=== PATIENT | female | born 1950 | race African-American/Black ===

== ENCOUNTER 2020-07-09 13:02 | Inpatient (IN) | payer OTHER ==
[~2020-07-09] VITALS: Ht 165.1 cm; Wt 90.3 kg
[~2020-07-09 13:02] MED LIST: GLIP10TA10 PO; HYDR12.529 PO; LEVO25TA7 PO; LISI40TA13 PO; METF-416 PO; POTA10CA42 PO
[2020-07-09] MEDS ORDERED: SODIUM CHLORIDE 0.9% 1,000 ML IV ONE (13:45)
[2020-07-09 14:55] LABS: CHLORIDE 103 mEq/L (98-107)
[2020-07-09 14:56] LABS: BASOPHILS % 0.6 % (0.0-2.0); HEMATOCRIT. 34.2 % (36.0-48.0); HEMOGLOBIN. 10.8 g/dL (12.0-16.0); LYMPHOCYTES % 9.4 % (20.0-50.0); MEAN CORPUSCULAR HEMOGLOBIN 25.3 pg (28.0-32.0); MEAN CORPUSCULAR VOLUME 80.2 fL (81.0-99.0); MEAN PLATELET VOLUME 7.7 fl (7.4-10.4); MONOCYTES % 7.7 % (2.0-8.0); NEUTROPHILS % 82.3 % (40.0-76.0); PLATELET 577 x1000/uL (130-400); RED BLOOD CELL COUNT 4.26 mill/uL (4.2-5.4); RED CELL DISTRIBUTION WIDTH 17.7 % (11.6-14.6)
[2020-07-09 15:40] LABS: CLARITY URINE CLOUDY (CLEAR); COLOR URINE YELLOW (YELLOW); KETONES URINE 1+ (NEGATIVE); LEUKOCYTE ESTERASE URINE 2+ (NEGATIVE); NITRITE URINE NEGATIVE (NEGATIVE); OCCULT BLOOD URINE TRACE (NEGATIVE); PROTEIN URINE TRACE (NEGATIVE); SPECIFIC GRAVITY URINE 1.011 (1.005-1.030); UROBILINOGEN URINE 0.2 E.U./dL (0.2-1.0)
[2020-07-09 16:01] LABS: *BARBITURATES SCREEN URINE NEGATIVE (NEGATIVE); *BENZODIAZEPINES SCREEN URINE NEGATIVE (NEGATIVE); *COCAINE SCREEN URINE NEGATIVE (NEGATIVE); CANNABINOID URINE SCREEN NEGATIVE (NEGATIVE); METHADONE URINE SCREEN NEGATIVE (NEGATIVE); OPIATES URINE SCREEN NEGATIVE (NEGATIVE); PHENCYCLIDINE URINE SCREEN NEGATIVE (NEGATIVE)
[2020-07-09 16:02] LABS: *AMPHETAMINES SCREEN URINE NEGATIVE (NEGATIVE)
[2020-07-09] MEDS ORDERED: LEVOFLOXACIN 750MG PREMIX 150 ML IV NR (18:00)
[2020-07-09] MEDS ORDERED: MORPHINE SULFATE 4 MG/ML CPJ (NOT FOR IM USE) IV ONE (18:45)
[2020-07-09 22:00] VITALS: BP 155/76
[2020-07-09] MEDS ORDERED: HYDROCODONE/ACETAMINOPHEN 5/325MG TABLET PO PRN ×2 (23:45)
[2020-07-09] MEDS ORDERED: ONDANSETRON HCL 4MG/2ML INJ IV PRN (23:45)
[2020-07-10] VITALS: BP 152/76
[2020-07-10] MEDS ORDERED: DEXTROSE 50% WATER 50ML SYRINGE IV PRN (00:15)
[2020-07-10] MEDS: HYDROCODONE/ACETAMINOPHEN 5/325MG TABLET PO PRN ×3 (00:45→23:05)
[2020-07-10] MEDS: ENOXAPARIN 30MG/0.3ML SYR SUBCUT SCH ×2 (00:47→13:34)
[2020-07-10] MEDS ORDERED: POTASSIUM CHLORIDE 20MEQ TABLET SR PO NR ×2 (01:00→11:00)
[2020-07-10 05:30] VITALS: BP 199/95
[2020-07-10] MEDS: LEVOTHYROXINE SODIUM 25MCG TABLET PO SCH (06:04)
[2020-07-10] MEDS: CLONIDINE 0.1MG TABLET PO PRN (06:06)
[2020-07-10] MEDS: BLOOD SUGAR DIAGNOSTIC STRIP TEST SCH ×4 (06:11→21:36)
[2020-07-10 07:23] LABS: BASOPHILS % 0.5 % (0.0-2.0); EOSINOPHILS % 0.1 % (0.0-5.0); HEMATOCRIT. 31.5 % (36.0-48.0); LYMPHOCYTES % 16.5 % (20.0-50.0); MEAN CORPUSCULAR HEMOGLOBIN 25.3 pg (28.0-32.0); MEAN CORPUSCULAR VOLUME 79.7 fL (81.0-99.0); MEAN PLATELET VOLUME 7.5 fl (7.4-10.4); MONOCYTES % 9.6 % (2.0-8.0); NEUTROPHILS % 73.3 % (40.0-76.0); PLATELET 504 x1000/uL (130-400); RED BLOOD CELL COUNT 3.96 mill/uL (4.2-5.4); RED CELL DISTRIBUTION WIDTH 17.6 % (11.6-14.6)
[2020-07-10 07:36] LABS: CHLORIDE 102 mEq/L (98-107)
[2020-07-10 07:45] LABS: CREATINE KINASE MB FRACTION 2.8 ng/mL (0.5-3.6); LDL CHOLESTEROL 82 mg/dL (5-100)
[2020-07-10 07:46] LABS: CREATINE KINASE 253 IU/L (26-192); HDL CHOLESTEROL 54 mg/dL (40-59)
[2020-07-10 08:49] VITALS: BP 104/56
[2020-07-10] MEDS ORDERED: ASPIRIN 81MG EC TABLET PO SCH (09:00)
[2020-07-10] MEDS: AMLODIPINE 5MG TABLET PO SCH (09:07)
[2020-07-10] MEDS: INSULIN LISPRO 100 UNITS/ML SUBCUT SCH ×4 (09:10→21:00)
[2020-07-10] MEDS ORDERED: LEVOFLOXACIN 500MG TABLET PO SCH (11:00)
[2020-07-10 12:17] VITALS: BP 159/65
[2020-07-10] MEDS ORDERED: IPRATROPIUM/ALBUTEROL 0.5-3(2.5)MG/3ML NEB HHN PRN (14:30)
[2020-07-10] MEDS ORDERED: HYDRALAZINE 20MG/ML VIAL IV PRN (14:30)
[2020-07-10] MEDS ORDERED: SODIUM CHLORIDE 0.45% 1,000 ML IV SCH (14:30)
[2020-07-10] MEDS ORDERED: BISACODYL 10MG SUPP PR PRN (14:30)
[2020-07-10] MEDS ORDERED: MORPHINE SULFATE 2 MG/ML CPJ (NOT FOR IM USE) IV PRN (14:30)
[2020-07-10] MEDS ORDERED: VANCOMYCIN 1,750 MG in DEXT 5% WATER 250 ML IV NR (16:00)
[2020-07-10 16:10] LABS: INR 1.1; PROTHROMBIN TIME 12.2 sec (9.6-11.0)
[2020-07-10 16:16] LABS: CREATINE KINASE MB FRACTION 2.7 ng/mL (0.5-3.6)
[2020-07-10 16:17] VITALS: BP 128/60
[2020-07-10] MEDS: DEXAMETHASONE 4MG/ML 1ML VIAL IV SCH (18:00)
[2020-07-10] MEDS: SODIUM CHLORIDE 0.9% 1,000 ML IV SCH (21:15)
[2020-07-11] VITALS (49 sets, daily range): BP systolic 1–239; BP diastolic 0–234
[2020-07-11] MEDS: DEXAMETHASONE 4MG/ML 1ML VIAL IV SCH ×5 (00:03→23:42)
[2020-07-11 05:40] LABS: HEMATOCRIT. 33.3 % (36.0-48.0); HEMOGLOBIN. 10.5 g/dL (12.0-16.0); MEAN CORPUSCULAR HEMOGLOBIN 24.9 pg (28.0-32.0); MEAN CORPUSCULAR VOLUME 78.9 fL (81.0-99.0); MEAN PLATELET VOLUME 7.7 fl (7.4-10.4); PLATELET 523 x1000/uL (130-400); RED BLOOD CELL COUNT 4.23 mill/uL (4.2-5.4); RED CELL DISTRIBUTION WIDTH 17.6 % (11.6-14.6)
[2020-07-11] MEDS ORDERED: THROMBIN (BOVINE) 5000 UNITS/VIAL TOP ONE (06:05)
[2020-07-11] MEDS ORDERED: BACITRACIN 50,000 UNITS/VIAL ONE (06:05)
[2020-07-11 06:10] LABS: CHLORIDE 104 mEq/L (98-107)
[2020-07-11] MEDS: LEVOTHYROXINE SODIUM 25MCG TABLET PO SCH (06:12)
[2020-07-11] MEDS: BLOOD SUGAR DIAGNOSTIC STRIP TEST SCH ×4 (06:12→20:59)
[2020-07-11] MEDS: INSULIN LISPRO 100 UNITS/ML SUBCUT SCH ×4 (06:17→20:59)
[2020-07-11] MEDS: SODIUM CHLORIDE 0.9% 1,000 ML IV SCH ×2 (06:17→17:23)
[2020-07-11] MEDS ORDERED: NEOSTIGMINE METHYLSULFATE 1MG/ML 10 ML VIAL ONE (07:03)
[2020-07-11] MEDS ORDERED: FENTANYL CITRATE/PF 50MCG/ML 2ML VIAL ONE ×3 (07:03→08:40)
[2020-07-11] MEDS ORDERED: ROCURONIUM BROMIDE 10MG/ML VIAL 5ML IV ONE ×2 (07:03→07:31)
[2020-07-11] MEDS ORDERED: EPHEDRINE SULFATE 50MG/ML VIAL ONE (07:04)
[2020-07-11] MEDS ORDERED: PROPOFOL 200MG/20ML VIAL IV ONE (07:04)
[2020-07-11] MEDS ORDERED: ONDANSETRON HCL 4MG/2ML INJ ONE (07:04)
[2020-07-11] MEDS ORDERED: SUCCINYLCHOLINE CHLORIDE 200MG/10ML IV ONE (07:04)
[2020-07-11] MEDS ORDERED: MIDAZOLAM HCL 2 MG/2 ML VIAL ONE (07:04)
[2020-07-11] MEDS ORDERED: CEFAZOLIN SODIUM 1000MG/VIAL ONE (07:04)
[2020-07-11] MEDS ORDERED: GLYCOPYRROLATE 0.2 MG/ML 2ML VIAL ONE (07:04)
[2020-07-11] MEDS ORDERED: SODIUM CHLORIDE 0.9% 10ML VIAL ONE (07:04)
[2020-07-11] MEDS ORDERED: METOCLOPRAMIDE HCL 10MG/2ML VIAL ONE (07:05)
[2020-07-11] MEDS ORDERED: PHENYLEPHRINE HCL 10 MG/ML 1ML (IV VIAL) IV ONE (07:05)
[2020-07-11] MEDS ORDERED: VANCOMYCIN 1 G PREMIX 200 ML IV SCH (08:00)
[2020-07-11] MEDS ORDERED: MORPHINE SULFATE 4 MG/ML CPJ (NOT FOR IM USE) IV PRN (09:00)
[2020-07-11] MEDS ORDERED: LABETALOL HCL 5MG/ML VIAL 20ML IV ONE (09:00)
[2020-07-11] MEDS: AMLODIPINE 5MG TABLET PO SCH (09:00)
[2020-07-11] MEDS: NICARDIPINE 100 MG in SODIUM CHLORIDE 0.9% 60 ML IV PRN ×2 (09:37→19:15)
[2020-07-11] MEDS: LEVOFLOXACIN 500MG PREMIX 100 ML IV SCH (11:00)
[2020-07-11] MEDS ORDERED: ONDANSETRON INJ IV PRN (11:45)
[2020-07-11] MEDS ORDERED: NALOXONE INJ IV PRN (11:45)
[2020-07-11] MEDS ORDERED: HYDROMORPHONE PCA 10MG/50ML IV PRN (11:45)
[2020-07-11 13:08] LABS: BG CARBOXYHEMOGLOBIN 0.3 % (0.5-1.5); BG DEOXYHEMOGLOBIN 7.2 % (0.0-5.0); BG HCO3 ACT 24.1 mmol/L (22.0-26.0); BG METHEMOGLOBIN 0.3 % (0.0-1.5); BG OXYGEN SATURATION 92.8 % (92.0-98.5); BG OXYHEMOGLOBIN 92.2 % (94.0-97.0); BG PCO2 41.7 mmHg (35.0-45.0); BG PH 7.379 (7.350-7.450); BG PO2 70.4 mmHg (75.0-100.0); BG SAMPLE SITE ALINE; BG TOTAL HEMOGLOBIN 11.1 g/dL (12.0-18.0); BG VENT MODE ROOM AIR
[2020-07-11 14:31] LABS: PLATELET ESTIMATE INCREASED
[2020-07-11] MEDS: VANCOMYCIN 1 G PREMIX 200 ML IV SCH (17:22)
[2020-07-11] MEDS: MAGNESIUM/ALUMINUM HYDROXIDE/SIMETHICONE 30ML UDC PO PRN (20:07)
[2020-07-12] VITALS (112 sets, daily range): BP systolic 69–170; BP diastolic 45–163
[2020-07-12] MEDS: MAGNESIUM/ALUMINUM HYDROXIDE/SIMETHICONE 30ML UDC PO PRN ×3 (00:37→15:48)
[2020-07-12] MEDS: SODIUM CHLORIDE 0.9% 1,000 ML IV SCH ×3 (03:27→23:17)
[2020-07-12 06:00] LABS: HEMATOCRIT. 31.7 % (36.0-48.0); HEMOGLOBIN. 10.1 g/dL (12.0-16.0); MEAN CORPUSCULAR HEMOGLOBIN 25.1 pg (28.0-32.0); MEAN CORPUSCULAR VOLUME 78.9 fL (81.0-99.0); MEAN PLATELET VOLUME 7.9 fl (7.4-10.4); PLATELET 539 x1000/uL (130-400); RED BLOOD CELL COUNT 4.01 mill/uL (4.2-5.4); RED CELL DISTRIBUTION WIDTH 17.6 % (11.6-14.6)
[2020-07-12] MEDS: BLOOD SUGAR DIAGNOSTIC STRIP TEST SCH ×4 (06:07→21:12)
[2020-07-12] MEDS: LEVOTHYROXINE SODIUM 25MCG TABLET PO SCH (06:07)
[2020-07-12] MEDS: DEXAMETHASONE 4MG/ML 1ML VIAL IV SCH ×4 (06:07→23:17)
[2020-07-12] MEDS: INSULIN LISPRO 100 UNITS/ML SUBCUT SCH ×4 (06:10→21:21)
[2020-07-12 06:22] LABS: CHLORIDE 105 mEq/L (98-107)
[2020-07-12] MEDS: AMLODIPINE 5MG TABLET PO SCH ×2 (09:00→15:48)
[2020-07-12 10:20] LABS: PLATELET ESTIMATE INCREASED
[2020-07-12] MEDS: VANCOMYCIN 1 G PREMIX 200 ML IV SCH (10:30)
[2020-07-12] MEDS: LEVOFLOXACIN 500MG PREMIX 100 ML IV SCH (11:43)
[2020-07-12] MEDS: DIPHENHYDRAMINE INJ IV PRN (17:14)
[2020-07-12] MEDS: CARVEDILOL 3.125 MG TABLET PO SCH (21:12)
[2020-07-12] MEDS: HYDRALAZINE HCL 50MG TABLET PO SCH (21:12)
[2020-07-13] VITALS (79 sets, daily range): BP systolic 77–158; BP diastolic 25–106
[2020-07-13] MEDS: VANCOMYCIN 1 G PREMIX 200 ML IV SCH (03:15)
[2020-07-13] MEDS: DEXAMETHASONE 4MG/ML 1ML VIAL IV SCH ×3 (05:39→15:12)
[2020-07-13] MEDS: HYDRALAZINE HCL 50MG TABLET PO SCH (05:39)
[2020-07-13] MEDS: LEVOTHYROXINE SODIUM 25MCG TABLET PO SCH (05:39)
[2020-07-13] MEDS: BLOOD SUGAR DIAGNOSTIC STRIP TEST SCH ×4 (05:40→21:24)
[2020-07-13] MEDS: NICARDIPINE 100 MG in SODIUM CHLORIDE 0.9% 60 ML IV PRN (06:04)
[2020-07-13] MEDS: INSULIN LISPRO 100 UNITS/ML SUBCUT SCH ×4 (06:07→21:29)
[2020-07-13] MEDS: MAGNESIUM/ALUMINUM HYDROXIDE/SIMETHICONE 30ML UDC PO PRN (06:07)
[2020-07-13 06:09] LABS: CHLORIDE 103 mEq/L (98-107)
[2020-07-13 06:30] LABS: HEMATOCRIT. 31.5 % (36.0-48.0); HEMOGLOBIN. 10.1 g/dL (12.0-16.0); MEAN CORPUSCULAR HEMOGLOBIN 25.5 pg (28.0-32.0); MEAN CORPUSCULAR VOLUME 79.5 fL (81.0-99.0); PLATELET 547 x1000/uL (130-400); RED BLOOD CELL COUNT 3.96 mill/uL (4.2-5.4); RED CELL DISTRIBUTION WIDTH 17.8 % (11.6-14.6)
[2020-07-13] MEDS: AMLODIPINE 5MG TABLET PO SCH ×2 (08:30→18:54)
[2020-07-13] MEDS: CARVEDILOL 3.125 MG TABLET PO SCH ×2 (08:30→21:02)
[2020-07-13] MEDS: SODIUM CHLORIDE 0.9% 1,000 ML IV SCH (08:32)
[2020-07-13] MEDS: DIPHENHYDRAMINE INJ IV PRN ×3 (08:35→15:12)
[2020-07-13 09:36] LABS: PLATELET ESTIMATE INCREASED
[2020-07-13] MEDS ORDERED: CARVEDILOL 6.25 MG TABLET PO NR (11:13)
[2020-07-13] MEDS: LEVOFLOXACIN 500MG PREMIX 100 ML IV SCH (12:01)
[2020-07-13] MEDS ORDERED: HYDRALAZINE HCL 25MG TABLET PO SCH (14:00)
[2020-07-13] MEDS: LOSARTAN POTASSIUM 25 MG TABLET PO SCH (15:12)
[2020-07-13] MEDS: VANCOMYCIN 1250MG in DEXTROSE 5% WATER 250ML IV SCH (15:12)
[2020-07-13] MEDS ORDERED: LOSARTAN POTASSIUM 25 MG TABLET PO SCH (17:00)
[2020-07-13] MEDS ORDERED: IOHEXOL 350 MG/ML 200ML INFUS..BTL IV ONE (18:03)
[2020-07-14] VITALS: BP 129/61
[2020-07-14] MEDS: DEXAMETHASONE 4MG/ML 1ML VIAL IV SCH ×4 (00:44→17:09)
[2020-07-14 04:00] VITALS: BP 132/65
[2020-07-14] MEDS: VANCOMYCIN 1250MG in DEXTROSE 5% WATER 250ML IV SCH ×2 (04:09→13:13)
[2020-07-14] MEDS: INSULIN LISPRO 100 UNITS/ML SUBCUT SCH ×4 (06:27→20:54)
[2020-07-14] MEDS: BLOOD SUGAR DIAGNOSTIC STRIP TEST SCH ×4 (06:27→20:54)
[2020-07-14] MEDS: LEVOTHYROXINE SODIUM 25MCG TABLET PO SCH (06:27)
[2020-07-14 08:00] VITALS: BP 147/74
[2020-07-14] MEDS: HYDROCODONE/ACETAMINOPHEN 5/325MG TABLET PO PRN (09:09)
[2020-07-14] MEDS: LOSARTAN POTASSIUM 25 MG TABLET PO SCH ×2 (09:09→17:02)
[2020-07-14] MEDS: CARVEDILOL 3.125 MG TABLET PO SCH ×2 (09:10→20:53)
[2020-07-14] MEDS: AMLODIPINE 5MG TABLET PO SCH ×2 (09:10→17:03)
[2020-07-14 10:54] LABS: BASOPHILS % 0.2 % (0.0-2.0); HEMATOCRIT. 33.7 % (36.0-48.0); HEMOGLOBIN. 10.7 g/dL (12.0-16.0); LYMPHOCYTES % 9.9 % (20.0-50.0); MEAN CORPUSCULAR HEMOGLOBIN 25.3 pg (28.0-32.0); MEAN CORPUSCULAR VOLUME 79.8 fL (81.0-99.0); MONOCYTES % 3.3 % (2.0-8.0); NEUTROPHILS % 86.6 % (40.0-76.0); RED BLOOD CELL COUNT 4.22 mill/uL (4.2-5.4); RED CELL DISTRIBUTION WIDTH 17.8 % (11.6-14.6)
[2020-07-14] MEDS: LEVOFLOXACIN 500MG PREMIX 100 ML IV SCH (11:05)
[2020-07-14 11:16] LABS: CHLORIDE 101 mEq/L (98-107)
[2020-07-14 12:00] VITALS: BP 126/63
[2020-07-14 14:44] LABS: PLATELET 499 x1000/uL (130-400)
[2020-07-14 16:00] VITALS: BP 149/80
[2020-07-14 20:00] VITALS: BP 157/76
[2020-07-15] VITALS: BP 136/62
[2020-07-15] MEDS: VANCOMYCIN 1250MG in DEXTROSE 5% WATER 250ML IV SCH ×2 (01:16→13:41)
[2020-07-15] MEDS: DEXAMETHASONE 4MG/ML 1ML VIAL IV SCH ×4 (01:16→21:10)
[2020-07-15 04:00] VITALS: BP 169/81
[2020-07-15] MEDS: LEVOTHYROXINE SODIUM 25MCG TABLET PO SCH (05:47)
[2020-07-15] MEDS: CLONIDINE 0.1MG TABLET PO PRN (05:47)
[2020-07-15] MEDS: INSULIN LISPRO 100 UNITS/ML SUBCUT SCH ×4 (05:48→21:09)
[2020-07-15] MEDS: BLOOD SUGAR DIAGNOSTIC STRIP TEST SCH ×4 (05:48→21:13)
[2020-07-15 06:45] LABS: INR 1.1; PARTIAL THROMBOPLASTIN TIME 24.7 sec (23.4-31.0); PROTHROMBIN TIME 11.9 sec (9.6-11.0)
[2020-07-15 06:46] LABS: BASOPHILS % 0.1 % (0.0-2.0); HEMATOCRIT. 35.3 % (36.0-48.0); HEMOGLOBIN. 11.2 g/dL (12.0-16.0); LYMPHOCYTES % 7.9 % (20.0-50.0); MEAN CORPUSCULAR HEMOGLOBIN 25.3 pg (28.0-32.0); MEAN CORPUSCULAR VOLUME 79.7 fL (81.0-99.0); MEAN PLATELET VOLUME 7.9 fl (7.4-10.4); MONOCYTES % 3.3 % (2.0-8.0); NEUTROPHILS % 88.7 % (40.0-76.0); PLATELET 511 x1000/uL (130-400); RED BLOOD CELL COUNT 4.43 mill/uL (4.2-5.4); RED CELL DISTRIBUTION WIDTH 17.8 % (11.6-14.6)
[2020-07-15 07:02] LABS: CHLORIDE 102 mEq/L (98-107)
[2020-07-15 08:00] VITALS: BP 139/61
[2020-07-15] MEDS: AMLODIPINE 5MG TABLET PO SCH ×2 (10:46→18:51)
[2020-07-15] MEDS: LOSARTAN POTASSIUM 25 MG TABLET PO SCH ×2 (10:46→18:51)
[2020-07-15] MEDS: CARVEDILOL 3.125 MG TABLET PO SCH ×2 (10:46→21:10)
[2020-07-15] MEDS: LEVOFLOXACIN 500MG PREMIX 100 ML IV SCH (10:46)
[2020-07-15 12:00] VITALS: BP 160/72
[2020-07-15] MEDS ORDERED: MIDAZOLAM HCL 5 MG/5 ML VIAL ONE (13:26)
[2020-07-15] MEDS ORDERED: FENTANYL CITRATE/PF 50MCG/ML 5ML VIAL ONE (13:26)
[2020-07-15 16:00] VITALS: BP 137/95
[2020-07-15 20:00] VITALS: BP 130/70
[2020-07-15] MEDS: HYDRALAZINE HCL 25MG TABLET PO SCH (21:17)
[2020-07-16] VITALS (7 sets, daily range): BP systolic 126–159; BP diastolic 64–84
[2020-07-16] MEDS: VANCOMYCIN 1250MG in DEXTROSE 5% WATER 250ML IV SCH ×2 (01:42→13:22)
[2020-07-16] MEDS: INSULIN LISPRO 100 UNITS/ML SUBCUT SCH ×4 (05:34→20:19)
[2020-07-16] MEDS: HYDRALAZINE HCL 25MG TABLET PO SCH ×3 (05:36→20:24)
[2020-07-16] MEDS: BLOOD SUGAR DIAGNOSTIC STRIP TEST SCH ×4 (05:36→20:24)
[2020-07-16 06:53] LABS: BASOPHILS % 0.2 % (0.0-2.0); HEMATOCRIT. 34.3 % (36.0-48.0); HEMOGLOBIN. 10.9 g/dL (12.0-16.0); LYMPHOCYTES % 7.7 % (20.0-50.0); MEAN CORPUSCULAR HEMOGLOBIN 24.9 pg (28.0-32.0); MEAN CORPUSCULAR VOLUME 78.4 fL (81.0-99.0); MEAN PLATELET VOLUME 7.6 fl (7.4-10.4); MONOCYTES % 3.1 % (2.0-8.0); PLATELET 535 x1000/uL (130-400); RED BLOOD CELL COUNT 4.37 mill/uL (4.2-5.4); RED CELL DISTRIBUTION WIDTH 17.5 % (11.6-14.6)
[2020-07-16 07:00] LABS: CHLORIDE 99 mEq/L (98-107)
[2020-07-16] MEDS: DEXAMETHASONE 4MG/ML 1ML VIAL IV SCH (09:48)
[2020-07-16] MEDS: LOSARTAN POTASSIUM 25 MG TABLET PO SCH ×2 (09:48→18:01)
[2020-07-16] MEDS: AMLODIPINE 5MG TABLET PO SCH ×2 (09:49→18:02)
[2020-07-16] MEDS: LEVOTHYROXINE SODIUM 25MCG TABLET PO SCH (09:50)
[2020-07-16] MEDS: CARVEDILOL 3.125 MG TABLET PO SCH ×2 (09:50→20:23)
[2020-07-16] MEDS ORDERED: LACTULOSE 20G/30ML UDC PO SCH (12:30)
[2020-07-16] MEDS: HYDROCODONE/ACETAMINOPHEN 5/325MG TABLET PO PRN ×2 (13:21→20:24)
[2020-07-16] MEDS ORDERED: POTASSIUM CHLORIDE 20MEQ TABLET SR PO NR (14:45)
[2020-07-16] MEDS ORDERED: LEVOFLOXACIN 500MG TABLET PO SCH (15:00)
[2020-07-16] MEDS ORDERED: INSULIN GLARGINE UD 100 UNITS/ML SYR SUBCUT NR (16:00)
[2020-07-16] MEDS ORDERED: DEXAMETHASONE 4MG/ML 1ML VIAL IV SCH (21:00)
[2020-07-16] MEDS ORDERED: INSULIN GLARGINE UD 100 UNITS/ML SYR SUBCUT SCH (22:00)
[2020-07-17] VITALS: BP 140/65
[2020-07-17] MEDS: VANCOMYCIN 1250MG in DEXTROSE 5% WATER 250ML IV SCH (01:07)
== END 2020-07-17 03:59 | DRG 471 ==
LOC: ER 13:02 → 6EST 19:06 → ENRESERV 21:09 → 6WST 07-10 02:20 → MICUSO 07-10 20:40 → MICUNO 07-11 09:14 → 8WST 07-13 23:25
PROVIDERS: ADMIT Internal Medicine; ATTEND Internal Medicine
PROC: 0RG20A0 Fusion of 2 or more Cervical Vertebral Joints with Interbody Fusion Device, Anterior Approach, Anterior Column, Open Approach (ICD-10-PCS; principal; 2020-07-11)
PROC: 0RB30ZZ Excision of Cervical Vertebral Disc, Open Approach (ICD-10-PCS; 2020-07-11)
DX: M48.02 Spinal stenosis, cervical region (principal); G82.50 Quadriplegia, unspecified; N39.0 Urinary tract infection, site not specified; M47.12 Other spondylosis with myelopathy, cervical region; M86.8X7 Other osteomyelitis, ankle and foot; I70.262 Atherosclerosis of native arteries of extremities with gangrene, left leg; K55.1 Chronic vascular disorders of intestine; I77.4 Celiac artery compression syndrome; L03.116 Cellulitis of left lower limb; D64.9 Anemia, unspecified; E11.69 Type 2 diabetes mellitus with other specified complication; E11.621 Type 2 diabetes mellitus with foot ulcer; L97.529 Non-pressure chronic ulcer of other part of left foot with unspecified severity; M47.22 Other spondylosis with radiculopathy, cervical region; E11.65 Type 2 diabetes mellitus with hyperglycemia; M47.816 Spondylosis without myelopathy or radiculopathy, lumbar region; E78.5 Hyperlipidemia, unspecified; M51.26 Other intervertebral disc displacement, lumbar region; E87.6 Hypokalemia; K76.0 Fatty (change of) liver, not elsewhere classified; I70.0 Atherosclerosis of aorta; J84.10 Pulmonary fibrosis, unspecified; E03.9 Hypothyroidism, unspecified; D72.829 Elevated white blood cell count, unspecified; I10 Essential (primary) hypertension; M19.072 Primary osteoarthritis, left ankle and foot; Z20.822 Contact with and (suspected) exposure to COVID-19; M25.78 Osteophyte, vertebrae; M48.061 Spinal stenosis, lumbar region without neurogenic claudication; Z88.0 Allergy status to penicillin; Z91.013 Allergy to seafood; Z91.018 Allergy to other foods; Z79.899 Other long term (current) drug therapy; Z90.710 Acquired absence of both cervix and uterus; Z87.891 Personal history of nicotine dependence; Z86.73 Personal history of transient ischemic attack (TIA), and cerebral infarction without residual deficits
CPT/HCPCS: 36415; 36600; 70551; 71045; 72040; 72141; 72148; 73630; 73721; 75635; 76000; 80048; 80053; 80061; 80202; 80305; 81003; 82375; 82550; 82553; 82805; 82962; 83036; 83605; 83735; 83880; 84439; 84443; 84484; 85025; 85651; 86141; 86850; 86900; 87070; 87077; 87186; 87426; 88304; 88311; 93005; 93306; 93923; 93970; 95863; 95925; 95926; 95928; 95929; 95940; 97163; 97530; 99285; A6261; C1713; J0330; J0360; J0690; J1100; J1200; J1650; J1815; J1956; J2250; J2270; J2370; J2405; J2704; J2710; J2765; J3010; J3370; J3490; J7030; J7040; J7050; J7060; L0172; Q9967; U0003; C1762